=== PATIENT | male | born 1955 | race Caucasian/White ===

== ENCOUNTER 2018-04-23 16:07 | Emergency (ER) | payer SELFPAY ==
[~2018-04-23] VITALS: Ht 172.7 cm; Wt 60.3 kg
[2018-04-23 16:14] VITALS: Ht 172.7 cm; Wt 60.3 kg
[2018-04-23 16:40] VITALS: BP 133/81
== END 2018-04-23 16:40 | disposition home or self-care (01) ==
LOC: ED 16:07
DX: K40.90 Unilateral inguinal hernia, without obstruction or gangrene, not specified as recurrent (principal); I83.92 Asymptomatic varicose veins of left lower extremity; F17.210 Nicotine dependence, cigarettes, uncomplicated
CPT/HCPCS: 99406